=== PATIENT | female | born 1970 | race Hispanic/Latino ===

== ENCOUNTER 2018-10-23 13:08 | Day surgery (SDC) | payer BC ==
[2018-10-23] MEDS ORDERED: LACTATED RINGERS 1,000 ML IV SCH (14:18)
[2018-10-23] MEDS ORDERED: VERSED IV NR (14:18)
--- NOTE | 2018-10-23 15:58 | Short Stay Summary ---
Short Stay Documentation Date of service: 10/23/18 - Allergies and Medications Current Medications: Allergies No Known Allergies Allergy (Verified 09/23/18 15:58) Home Medications Medication Instructions Recorded Confirmed Last Taken Type HYDROcodone/ACETAMINOPHEN 1 each PO PRN PRN 09/23/18 10/17/18 09/24/18 History [Hydrocodone-Acetamin 5-325 mg] Oxybutynin [Ditropan] 5 mg PO QHS 09/23/18 10/17/18 09/24/18 History Nitrofurantoin 100 mg PO Q12HR 10/17/18 10/17/18 Unknown History Active Medications Cefazolin Sodium (Ancef/Sterile Water 2 Gm/20 Ml) 2 gm IV PREOP NR Stop: 10/23/18 23:59 Lactated Ringer's (Lactated Ringers) 1,000 mls @ 100 mls/hr IV DIRECT JIM Stop: 10/23/18 23:59 Last Admin: 10/23/18 14:55 Dose: 100 mls/hr Documented by: Midazolam HCl (Versed) 2 mg IV PREOP NR Stop: 10/23/18 23:59 Last Admin: 10/23/18 15:13 Dose: 2 mg Documented by: - Brief post op/procedure progress note Date of procedure: 10/23/18 Pre-op diagnosis: ureteral stone Post-op diagnosis: same Procedure: cysto rt rpg rt urs sbe, stent change 626; staged Anesthesia: GETA Findings: uret stones Surgeon: NELI GILBERT Estimated blood loss: minimal Pathology: list (stone) Specimen disposition: to lab Condition: stable - Hospital course Hospital course: orpacuhome - Disposition Condition at discharge: Good Disposition: DC-01 TO HOME OR SELFCARE Short Stay Discharge Plan Activity: advance as tolerated Diet: advance as tolerated Follow up with: NELI GILBERT MD [Staff Physician] - 7 Days
[2018-10-23] MEDS ORDERED: ANCEF/STERILE WATER 2 GM/20 ML IV NR (16:00)
[2018-10-23] MEDS ORDERED: SUBLIMAZE ONE ×2 (18:14→18:50)
[2018-10-23] MEDS ORDERED: XYLOCAINE CARDIAC IV ONE (18:14)
[2018-10-23] MEDS ORDERED: DIPRIVAN 10 MG/ML IV ONE (18:15)
--- NOTE | 2018-10-23 18:22 | Anesthesia Day of Surgery ---
Anesthesia Day of Surgery - Day of Surgery Patient Examined: Yes Patient H&P Reviewed: Yes Patient is NPO: Yes
--- NOTE | 2018-10-23 18:23 | Anesthesia Consultation ---
Anesthesia Consult and Med Hx Date of service: 10/23/18 - Airway Anesthetic Teeth Evaluation: Poor ROM Head & Neck: Adequate Mental/Hyoid Distance: Adequate Mallampati Class: Class III Intubation Access Assessment: Possibly Difficult - Pulmonary Exam CTA: Yes - Cardiac Exam Cardiac Exam: RRR - Pre-Operative Health Status ASA Pre-Surgery Classification: ASA3 Proposed Anesthetic Plan: General - Pulmonary Hx Smoking: No Hx Sleep Apnea: No (GULSHAN PRE SCREEN LOW RISK) - Cardiovascular System Hx Hypertension: No - Hematic Hx Anemia: Yes (NOT RECENT) - Other Systems Hx Cancer: No
[2018-10-23] MEDS ORDERED: DECADRON ONE (18:54)
[2018-10-23] MEDS ORDERED: ZOFRAN ONE (18:54)
[2018-10-23] MEDS ORDERED: ROBINUL ONE (19:36)
[2018-10-23] MEDS ORDERED: ZOFRAN IV PRN (19:54)
[2018-10-23] MEDS ORDERED: DILAUDID IV PRN (19:54)
[2018-10-23] MEDS ORDERED: NORCO 10/325 PO PRN (20:51)
[2018-10-23 21:59] VITALS: BP 139/56
--- NOTE | 2018-10-24 07:41 | Fluoroscopy Report ---
Retrograde pyelogram: Right ureteral calculus. Initial image demonstrates a right nephroureteral stent. A rounded calculus is noted adjacent to the mid stent at the upper margin of L5 on the right. A ureteroscope was placed with passage of wires distally into the partially opacified and dilated intrarenal collecting system. By history a basket was used to extract the calculus. The opacified and slightly dilated right intrarenal collecting system showed no obvious filling defect. A right nephroureteral stent was left in place with decompression of the previously noted dilated intrarenal collecting system. Impression: Apparent removal of right ureteral calculus.
--- NOTE | 2018-10-29 10:45 | Operative Report ---
PREOPERATIVE DIAGNOSIS: Right ureteral stone. POSTOPERATIVE DIAGNOSIS: Right ureteral stone. PROCEDURE: Cystoscopy, right RPG, right ureteroscopy, stone basket extraction, stent 6 x 26, staged for future removal. ANESTHESIA: General. FINDINGS: Right proximal ureteral stone. SURGEON: Dr. Grzegorz Romo. ANESTHESIA: General. SPECIMENS: Stones. ESTIMATED BLOOD LOSS: Minimal. COMPLICATIONS: None. CLINICAL INDICATIONS: Counseled RCBA, antibiotics, SCDs. DESCRIPTION OF PROCEDURE: The patient was transferred to OR suite in supine position, anesthesia, dorsal lithotomy, prepped and draped in standard fashion. A 22-Lebanese scope passed. Glidewire passed adjacent to the stent. Stent removed. Rigid scope passed up to the stone, was grasped with triceps, pulled ____ within the bladder. A few fragments dropped in the bladder. Scope passed proximally, injected contrast, confirmed our position. Wire backloaded on the cystoscope and a 6-Lebanese x 26 passed over the wire under direct and fluoroscopic visualization. When the string was removed, nice proximal and distal J. Scope withdrawn, awakened and transferred to PACU, staged for future stent removal in office with cystoscope. JOB# [id number] ATS/NTS
== END 2018-10-23 21:45 | disposition home or self-care (01) ==
LOC: OR 13:08
PROVIDERS: ATTEND Urology
DX: N20.1 Calculus of ureter (principal); D64.9 Anemia, unspecified; Z79.899 Other long term (current) drug therapy; Z98.891 History of uterine scar from previous surgery; Z98.890 Other specified postprocedural states
CPT/HCPCS: 36415; 52320; 52332; 74420; 81025; 82365; C1726; C1758; C1769; C2617; J0690; J1100; J1170; J2001; J2250; J2405; J2704; J3010; J7120; Q9967